=== PATIENT | female | born 1980 | race Caucasian/White ===

== ENCOUNTER 2021-06-25 05:08 | Emergency (ER) | payer BC ==
[~2021-06-25] VITALS: Ht 162.6 cm; Wt 68.0 kg
[2021-06-25 05:08] VITALS: BP_SYST 129
--- NOTE | 2021-06-25 05:08 | NUR ---
Patient to ER bed 3 to gown for evaluation. Side rails up.
--- NOTE | 2021-06-25 05:10 | NUR ---
Seizure precautions in place. Seizure pads applied to gurney. Side rails up.
--- NOTE | 2021-06-25 05:25 | NUR ---
DR. MCNAIR AT BEDSIDE FOR EVALUATION.
--- NOTE | 2021-06-25 05:50 | NUR ---
# 22 gauge angiocath placed to LEFT FA. Use of asceptic technique. Opsite placed over site. Blood return noted. Blood for lab drawn from site. Flushed with 10 cc of normal saline. No evidence of infiltration noted. Patient tolerated well.
[2021-06-25 06:09] LABS: BASOPHILS % (AUTO) 0.4 % (0.0-2.0); EOSINOPHILS % (AUTO) 0.7 % (0.0-4.0); HEMATOCRIT 28.7 % (36-48); HEMOGLOBIN 9.3 g/dL (12.0-16.0); LYMPHOCYTES # (AUTO) 0.9 K/uL (1.0-5.5); LYMPHOCYTES % (AUTO) 15.5 % (20.5-51.5); MEAN CORPUSCULAR HEMOGLOBIN 28 pg (27-31); MEAN CORPUSCULAR HGB CONC 32 % (32-36); MEAN CORPUSCULAR VOLUME 87 fL (79.0-98.0); MONOCYTES # (AUTO) 0.2 K/uL (0.0-1.0); MONOCYTES % (AUTO) 4.1 % (1.7-9.3); NEUTROPHILS # (AUTO) 4.8 K/uL (1.8-7.7); NEUTROPHILS % (AUTO) 79.3 % (40.0-70.0); PLATELET COUNT (AUTO) 149 K/uL (130-430); RED BLOOD CELL COUNT(AUTO) 3.31 MIL/uL (4.2-6.2); RED CELL DISTRIBUTION WIDTH 21.3 % (9.0-15.0)
[2021-06-25 06:15] LABS: ANION GAP 12 (5-15); CALCIUM 8.5 mg/dL (8.4-11.0); CHLORIDE 103 mmol/L (98-107); CREATININE 0.78 mg/dL (0.55-1.30); GLUCOSE 107 mg/dL (70-99); POTASSIUM 4.4 mmol/L (3.5-5.1); SODIUM SERUM 139 mmol/L (136-145); UREA NITROGEN, BLOOD 10 mg/dL (8-21)
--- NOTE | 2021-06-25 06:18 | NUR ---
PATIENT AAOX4 BIB ALS D/T HAVING TONIC COLONIC SEIZURE AT HOME LASTING ABOUT 30 SECONDS. PER FAMILY SHE HAS NOT HAD ONE IN OVER 1 YEAR. VSS. PATIENT AWAKE AND ANSWERING QUESTIONS. LIMITED INDONESIAN. DENIES ANY CHEST PAIN OR SOB.
[2021-06-25 06:24] LABS: ALANINE AMINOTRANSFERASE 26 U/L (12-78); ASPARTATE AMINOTRANSFERASE 25 U/L (10-37); CARBAMAZEPINE (TEGRETOL) < 0 ug/mL (4-12); GFR AFRICAN AMERICAN 104 mL/min (>90); HCG,QUANTITATIVE 0 mIU/ML (0-6); TOTAL BILIRUBIN 0.1 mg/dL (0.0-1.0)
[2021-06-25 06:27] LABS: ALCOHOL, BLOOD < 3 mg/dL (<10)
--- NOTE | 2021-06-25 07:07 | NUR ---
REPORT GIVEN TO BRENNEN SCOTT
--- NOTE | 2021-06-25 07:09 | NUR ---
DR SUAREZ AT BEDSIDE.
--- NOTE | 2021-06-25 07:14 | NUR ---
UP AMBULATING STEADY, RESP UNLABORED, AAO, AT BEDSIDE, CALM, ALERT, NO DISTRESS
[2021-06-25 07:43] VITALS: BP_SYST 121
--- NOTE | 2021-06-25 07:45 | NUR ---
Patient given written and verbal discharge instructions and verbalizes understanding. ER MD discussed with patient the results and treatment provided. Patient in stable condition. ID arm band removed. IV catheter removed intact and dressing applied, no active bleeding. Patient educated on pain management and to follow up with PMD. Pain Scale Opportunity for questions provided and answered.
== END 2021-06-25 07:45 | disposition home or self-care (01) ==
LOC: SED 05:08
DX: G40.909 Epilepsy, unspecified, not intractable, without status epilepticus (principal); Z91.14 Patient's other noncompliance with medication regimen
CPT/HCPCS: 36415; 80053; 80156; 84702; 85025; 99283; G0482